=== PATIENT | female | born 1975 | race Caucasian/White ===

== ENCOUNTER 2022-12-18 07:32 | Day surgery (SDC) | payer OTHER ==
[2022-12-18] MEDS ORDERED: Lactated Ringers 1,000 ML IV SCH (08:00)
[2022-12-18] MEDS ORDERED: Propofol 200 MG/20 ML SDV ONE (08:29)
[2022-12-18] MEDS ORDERED: Midazolam 1 MG/ML 2 ML SDV ONE (08:29)
[2022-12-18] MEDS ORDERED: fentaNYL 50 MCG/ML SDV ONE (08:29)
== END 2022-12-18 10:53 | disposition home or self-care (01) ==
LOC: JP.SDS 07:32
PROVIDERS: ATTEND Student in an Organized Health Care Education/Training Program
DX: R19.5 Other fecal abnormalities (principal); K64.4 Residual hemorrhoidal skin tags; Z79.899 Other long term (current) drug therapy
CPT/HCPCS: 36415; 45378; 84703; J2250; J2704; J3010; J7120

== ENCOUNTER 2022-12-19 08:19 | Day surgery (SDC) | payer OTHER ==
[~2022-12-19 08:19] MED LIST: Midazolam 1 MG/ML 2 ML SDV ONE; Propofol 200 MG/20 ML SDV ONE; fentaNYL 50 MCG/ML SDV ONE
[2022-12-19] MEDS: Lactated Ringers 1,000 ML IV SCH (08:40)
== END 2022-12-19 10:38 | disposition home or self-care (01) ==
LOC: JP.SDS 08:19
PROVIDERS: ATTEND Family Medicine
DX: R19.5 Other fecal abnormalities (principal); Z98.890 Other specified postprocedural states
CPT/HCPCS: 45378; J2250; J2704; J3010; J7120